=== PATIENT | male | born 1965 | race Two or more races ===

== ENCOUNTER 2022-07-03 23:14 | Emergency (ER) | payer BC ==
[~2022-07-03] VITALS: Ht 165.1 cm; Wt 90.7 kg
[2022-07-04] MEDS ORDERED: ACETAMINOPHEN650 M2 PO (03:31)
[2022-07-04] MEDS ORDERED: LOSARTAN POTASS50 MG PO (03:34)
== END 2022-07-04 03:56 | disposition home or self-care (01) ==
LOC: ER 23:14
DX: R51.9 Headache, unspecified (principal); I10 Essential (primary) hypertension